=== PATIENT | female | born 1955 | race Caucasian/White ===

== ENCOUNTER → 2017-12-29 | Outpatient (CLI) | payer OTHER ==
[~2017-12-29] MED LIST: AVELOX400 MG PO; BAYER CHEWABLE81 MG PO; CALCIUM CARBO1000 MG PO; CYMBALTA30 MG PO; CYMBALTA60 MG PO; ELESTRIN26 GM TOP; FISH OIL 1,001000 M2 PO; FISHOIL; GARLIC OIL1 EACH PO; HYDROXYCHLOROQ200 M1 PO; METHOTREXATE 22.5 MG GT; MULTIPLE VITAM1 EAC1 PO; NAPROXEN 375 M375 M1 PO; NORCO 5-325 TA1 EACH PO; PREMARIN0.9 M1 PO; PROAIR HFA8.5 GM IH; PROLIA60 MG/1 ML INJECTION; TUMS PO; WELLBUTRIN SR150 MG PO; ZOFRAN4 MG PO; ZOLOFT100 MG PO
== END ==
LOC: M.RAD 08:21
DX: Z12.31 Encounter for screening mammogram for malignant neoplasm of breast (principal)

== ENCOUNTER 2018-01-19 12:56 | Emergency (ER) | payer OTHER ==
[~2018-01-19] VITALS: Ht 167.6 cm; Wt 70.9 kg
[~2018-01-19 12:56] MED LIST changes: -BAYER CHEWABLE81 MG PO; -CYMBALTA30 MG PO; -CYMBALTA60 MG PO; -ELESTRIN26 GM TOP; -FISH OIL 1,001000 M2 PO; -HYDROXYCHLOROQ200 M1 PO; -PROLIA60 MG/1 ML INJECTION; -TUMS PO
[2018-01-19 13:16] LABS: ABSOLUTE EOSINOPHILS 0.1 thou/uL (0.0-0.7); ABSOLUTE LYMPHOCYTES 2.3 thou/uL (0.8-5.3); ABSOLUTE MONOCYTES 0.3 thou/uL (0.0-1.2); ABSOLUTE NEUTROPHILS 2.1 thou/uL (1.6-8.1); BASOPHILS 0.5 %; EOSINOPHILS 1.1 %; HEMATOCRIT 38.6 % (37.0-47.0); HEMOGLOBIN 13.3 gm/dL (12.0-15.0); LYMPHOCYTES 48.5 %; MCH 32.2 pg (26.0-34.0); MCHC 34.5 g/dL (28.0-37.0); MCV 93.6 fL (80.0-100.0); MONOCYTES 6.5 %; MPV 8.8 fl. (7.2-11.1); NUCLEATED RBCS 0 /100WBC; PLATELET COUNT* 213 thou/uL (150-400); POLYS 43.4 %; RBC 4.13 mil/uL (4.20-5.00); RDW-CV 12.5 % (10.5-14.5); WBC 4.8 thou/uL (4.0-11.0)
[2018-01-19] MEDS ORDERED: CYMBALTA30 MG PO (13:17)
[2018-01-19] MEDS ORDERED: CYMBALTA60 MG PO (13:18)
[2018-01-19] MEDS ORDERED: ELESTRIN26 GM TOP (13:20)
[2018-01-19] MEDS ORDERED: HYDROXYCHLOROQ200 M1 PO (13:21)
[2018-01-19] MEDS ORDERED: PROLIA60 MG/1 ML INJECTION (13:23)
[2018-01-19 13:24] LABS: ANION GAP 7 mmol/L (7-16); BUN 22 mg/dL (7-18); CALCIUM 9.5 mg/dL (8.5-10.1); CHLORIDE 103 mmol/L (98-107); CO2 29 mmol/L (21-32); CREATININE 0.9 mg/dL (0.6-1.3); GLUCOSE 83 mg/dL (70-99); POTASSIUM 3.9 mmol/L (3.5-5.1); SODIUM 139 mmol/L (136-145)
[2018-01-19] MEDS ORDERED: BAYER CHEWABLE81 MG PO (13:24)
[2018-01-19 13:26] LABS: APTT 26.6 Seconds (25.0-31.3); PROTIME 10.1 Seconds (9.20-11.50)
[2018-01-19] MEDS ORDERED: TUMS PO (13:30)
[2018-01-19] MEDS ORDERED: FISH OIL 1,001000 M2 PO (13:31)
[2018-01-19 13:44] LABS: ALKALINE PHOSPHATASE 44 U/L (46-116); LIPASE 193 U/L (73-393); NT-PRO BRAIN NAT PEPTIDE 32 pg/mL (<300); SGOT 19 U/L (15-37); SGPT 28 U/L (30-65); TOTAL BILIRUBIN 0.3 mg/dL (<0.1-1.0); TOTAL PROTEIN 7.4 g/dL (6.4-8.2); TROPONIN-I LEVEL <0.06 ng/mL (<0.06)
[2018-01-19 14:07] VITALS: BP 121/73
--- NOTE | 2018-01-19 18:12 | EKG ---
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
--- NOTE | 2018-01-19 18:13 | EKG ---
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
== END 2018-01-19 14:09 | disposition home or self-care (01) ==
LOC: M.ERS 12:56
PROVIDERS: Family Medicine
DX: R07.89 Other chest pain (principal); F32.9 Major depressive disorder, single episode, unspecified; M19.90 Unspecified osteoarthritis, unspecified site; Z88.1 Allergy status to other antibiotic agents

== ENCOUNTER → 2018-04-21 | Outpatient (CLI) | payer OTHER ==
[~2018-04-21] MED LIST changes: +BAYER CHEWABLE81 MG PO; +CYMBALTA30 MG PO; +CYMBALTA60 MG PO; +ELESTRIN26 GM TOP; +FISH OIL 1,001000 M2 PO; +HYDROXYCHLOROQ200 M1 PO; +PROLIA60 MG/1 ML INJECTION; +TUMS PO
== END ==
LOC: M.ULTRA 08:00
DX: M79.89 Other specified soft tissue disorders (principal); M79.604 Pain in right leg

== ENCOUNTER → 2019-01-18 | Outpatient (CLI) | payer OTHER | LOC: M.RAD 15:40 | DX: M81.0 Age-related osteoporosis without current pathological fracture (principal) ==

== ENCOUNTER 2019-06-19 12:22 | Emergency (ER) | payer OTHER ==
[~2019-06-19] VITALS: Ht 167.6 cm; Wt 72.6 kg
[2019-06-19 12:26] VITALS: BP 137/81
== END 2019-06-19 12:51 | disposition home or self-care (01) ==
LOC: M.ERS 12:22
DX: S61.313A Laceration without foreign body of left middle finger with damage to nail, initial encounter (principal); M19.90 Unspecified osteoarthritis, unspecified site; Z88.1 Allergy status to other antibiotic agents; W26.8XXA Contact with other sharp object(s), not elsewhere classified, initial encounter; Y93.89 Activity, other specified; Y92.89 Other specified places as the place of occurrence of the external cause; Y99.8 Other external cause status

== ENCOUNTER → 2019-10-27 | Outpatient (CLI) | payer OTHER | LOC: M.RAD 11:32 | PROVIDERS: ATTEND Internal Medicine Rheumatology | DX: M25.551 Pain in right hip (principal); M25.552 Pain in left hip; M19.042 Primary osteoarthritis, left hand; G89.29 Other chronic pain; M25.642 Stiffness of left hand, not elsewhere classified; M25.641 Stiffness of right hand, not elsewhere classified ==

== ENCOUNTER 2019-12-08 17:08 | Emergency (ER) | payer OTHER ==
[~2019-12-08] VITALS: Ht 165.1 cm; Wt 68.0 kg
[2019-12-08] MEDS ORDERED: AUGMENTIN 875-1 EACH PO (20:43)
[2019-12-08] MEDS ORDERED: APAP W/CODEINE1 TA2 PO (20:43)
[2019-12-08 21:44] VITALS: BP 126/83
== END 2019-12-08 21:45 | disposition home or self-care (01) ==
LOC: M.ERS 17:08
DX: S61.411A Laceration without foreign body of right hand, initial encounter (principal); M19.90 Unspecified osteoarthritis, unspecified site; Z88.1 Allergy status to other antibiotic agents; W54.0XXA Bitten by dog, initial encounter; Y93.89 Activity, other specified; Y92.89 Other specified places as the place of occurrence of the external cause; Y99.8 Other external cause status

== ENCOUNTER → 2020-01-05 | Outpatient (CLI) | payer OTHER ==
[~2020-01-05] MED LIST changes: +APAP W/CODEINE1 TA2 PO; +AUGMENTIN 875-1 EACH PO
== END ==
LOC: M.RAD 08:35
PROVIDERS: ATTEND Internal Medicine
DX: Z12.31 Encounter for screening mammogram for malignant neoplasm of breast (principal)

== ENCOUNTER → 2021-01-14 | Outpatient (CLI) | payer OTHER | LOC: M.RAD 08:56 | PROVIDERS: ATTEND Family Medicine | DX: Z12.31 Encounter for screening mammogram for malignant neoplasm of breast (principal) ==